=== PATIENT | male | born 1980 | race Caucasian/White ===

== ENCOUNTER → 2017-05-16 | Outpatient (CLI) | payer MEDICAID, OTHER ==
[~2017-05-16] MED LIST: DIAZ2TAB PO; HYDR1TAB12 PO; NAPR250T6 PO; None per pt
== END | disposition home or self-care (01) ==
LOC: CFH 11:18
PROVIDERS: ATTEND Nurse Practitioner
DX: M51.17 Intervertebral disc disorders with radiculopathy, lumbosacral region (principal)
CPT/HCPCS: 72110; 72148